=== PATIENT | female | born 1975 | race African-American/Black ===

== ENCOUNTER 2022-04-28 13:24 | Emergency (ER) | payer OTHER ==
[~2022-04-28] VITALS: Ht 154 cm; Wt 68.0 kg
[2022-04-28 13:38] VITALS: BP_SYST 125; BP_SYST 126; BP_SYST 133; BP_DIAS 100; BP_DIAS 77; BP_DIAS 93
--- NOTE | 2022-04-28 13:46 | ED Syncope ---
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 Source of Information: Patient Exam Limitations: No Limitations History of Present Illness Date Seen by Provider: Apr 28, 2022 Time Seen by Provider: 13:34 Initial Comments Patient to the ER by EMS from work where she was working at a football game and states she got very hot feeling she was going to overheat and pass out. She says she was very shaky and nauseated. EMS gave her 4 mg Zofran on route which she says has not helped with her nausea. She has not been working out more than usual. She has not had any alcohol recently. She does not use recreational drugs or smoke cigarettes. She does not have a history of heart disease hypertension or hyperlipidemia. She does have a history of asthma and uses Advair inhalers but is denying any wheezing coughing or shortness of air. No significant history of anxiety or panic attacks. She has a history of tubes tied but no other surgeries. She has a blood sugar of 102 per EMS. No significant family medical history. Allergies and Home Medications Allergies Coded Allergies: No Known Drug Allergies (Unverified , 04/28/22) Patient Home Medication List Home Medication List Reviewed: Yes Review of Systems Constitutional: No chills, No diaphoresis EENTM: No ear discharge, No hearing loss Respiratory: No cough, No short of breath Cardiovascular: see HPI; No chest pain, No edema, No Hx of Intervention, No palpitations, No syncope, No vascular heart diseas Gastrointestinal: No abdominal pain, No constipation, No diarrhea; nausea, vomiting Genitourinary: No decreased output, No discharge Musculoskeletal: No back pain, No joint pain All Other Systems Reviewed Negative Unless Noted: Yes Past Irodgpl-Kreqcj-Wrpybm Hx Patient Social History Tobacco Use?: No Substance use?: No Alcohol Use?: Yes Alcohol type: Beer Alcohol Frequency: Once in a while Immunizations Up To Date Influenza Vaccine Up-to-Date: No; Not Current Physical Exam Vital Signs Vital Signs - First Documented 04/28/22 13:27 Temp 35.8 Pulse 72 Resp 22 B/P (MAP) 162/76 (104) Pulse Ox 100 O2 Delivery Room Air Capillary Refill : Height, Weight, BMI Height: '" Weight: lbs. oz. kg; 28.00 BMI Method: General Appearance: No Apparent Distress, Mild Distress HEENT: PERRL/EOMI, TMs Normal, Normal ENT Inspection; No Pharynx Normal (No erythema or injection), No Moist Mucous Membranes, No Tonsillar Exudate, No Tonsillar Enlargement Neck: Full Range of Motion, Normal Inspection, Non Tender Cardiovascular: Regular Rate, Rhythm, No Edema, No JVD, Normal Peripheral Pulses Respiratory: Lungs Clear, Normal Breath Sounds, No Accessory Muscle Use, No Respiratory Distress Gastrointestinal: Normal Bowel Sounds, No Organomegaly, Non Tender, Soft Neurologic/Psychiatric: Alert, Oriented x3, No Motor/Sensory Deficits, Normal Mood/Affect, advanced analytics associate II-XII Norm as Tested Cranial Nerves: Normal Hearing, Normal Speech, PERRL Motor/Sensory: No Motor Deficit, No Sensory Deficit Skin: Normal Color, Warm/Dry Progress/Results/Core Measures Results/Orders Lab Results Laboratory Tests Test 04/28/22 13:32 04/28/22 14:14 04/28/22 15:27 Range/Units White Blood Count 7.0 4.3-11.0 10^3/uL Red Blood Count 4.38 3.80-5.11 10^6/uL Hemoglobin 13.9 11.5-16.0 g/dL Hematocrit 39 35-52 % Mean Corpuscular Volume 90 80-99 fL Mean Corpuscular Hemoglobin 32 25-34 pg Mean Corpuscular Hemoglobin Concent 35 32-36 g/dL Red Cell Distribution Width 12.2 10.0-14.5 % Platelet Count 304 130-400 10^3/uL Mean Platelet Volume 10.1 9.0-12.2 fL Immature Granulocyte % (Auto) 0 % Neutrophils (%) (Auto) 37 L 42-75 % Lymphocytes (%) (Auto) 53 H 12-44 % Monocytes (%) (Auto) 8 0-12 % Eosinophils (%) (Auto) 1 0-10 % Basophils (%) (Auto) 1 0-10 % Neutrophils # (Auto) 2.6 1.8-7.8 10^3/uL Lymphocytes # (Auto) 3.7 1.0-4.0 10^3/uL Monocytes # (Auto) 0.6 0.0-1.0 10^3/uL Eosinophils # (Auto) 0.1 0.0-0.3 10^3/uL Basophils # (Auto) 0.0 0.0-0.1 10^3/uL Immature Granulocyte # (Auto) 0.0 0.0-0.1 10^3/uL Sodium Level 135 135-145 MMOL/L Potassium Level 4.5 3.6-5.0 MMOL/L Chloride Level 102 98-107 MMOL/L Carbon Dioxide Level 19 L 21-32 MMOL/L Anion Gap 14 5-14 MMOL/L Blood Urea Nitrogen 13 7-18 MG/DL Creatinine 0.94 0.60-1.30 MG/DL Estimat Glomerular Filtration Rate 75 BUN/Creatinine Ratio 14 Glucose Level 98 70-105 MG/DL Calcium Level 9.8 8.5-10.1 MG/DL Corrected Calcium 9.6 8.5-10.1 MG/DL Total Bilirubin 0.8 0.1-1.0 MG/DL Aspartate Amino Transf (AST/SGOT) 30 5-34 U/L Alanine Aminotransferase (ALT/SGPT) 21 0-55 U/L Alkaline Phosphatase 80 40-136 U/L Total Creatine Kinase 99 29-168 U/L Troponin I < 0.028 < 0.028 <0.028 NG/ML C-Reactive Protein High Sensitivity 0.09 0.00-0.50 MG/DL Total Protein 8.3 H 6.4-8.2 GM/DL Albumin 4.2 3.2-4.5 GM/DL Urine Color YELLOW Urine Clarity CLEAR Urine pH 6.5 5-9 Urine Specific [place] 1.020 1.016-1.022 Urine Protein NEGATIVE NEGATIVE Urine Glucose (UA) NEGATIVE NEGATIVE Urine Ketones NEGATIVE NEGATIVE Urine Nitrite NEGATIVE NEGATIVE Urine Bilirubin NEGATIVE NEGATIVE Urine Urobilinogen 0.2 < = 1.0 MG/DL Urine Leukocyte Esterase TRACE H NEGATIVE Urine RBC (Auto) NEGATIVE NEGATIVE Urine RBC NONE /HPF Urine WBC 2-5 /HPF Urine Squamous Epithelial Cells 2-5 /HPF Urine Crystals NONE /LPF Urine Bacteria TRACE /HPF Urine Casts NONE /LPF Urine Mucus NEGATIVE /LPF Urine Culture Indicated NO My Orders Orders - BLANCA,DAISY J Orthostatic Vital Signs (Adult (04/28/22 13:39) Ekg Tracing (04/28/22 13:39) Continuous Ekg Monitoring (04/28/22 13:39) Cbc With Automated Diff (04/28/22 13:39) Comprehensive Metabolic Panel (04/28/22 13:39) Hs C Reactive Protein (04/28/22 13:39) Ua Culture If Indicated (04/28/22 13:39) Urine Bedside (04/28/22 13:39) Chest 1 View, Ap/Pa Only (04/28/22 13:39) Troponin I Rose Marie (04/28/22 13:39) Ekg Tracing (04/28/22 13:43) Creatine Kinase (04/28/22 13:46) Ondansetron Injection (Zofran Injectio (04/28/22 14:00) Promethazine Injection (Phenergan Injec (04/28/22 14:15) Diphenhydramine Injection (Benadryl Inje (04/28/22 14:15) Lactated Ringers (Lr 1000 Ml Iv Solution (04/28/22 14:15) Troponin I Dewey (04/28/22 15:30) Medications Given in ED Current Medications Medications Dose Ordered Sig/Antonette Route Start Time Stop Time Status Last Admin Dose Admin Diphenhydramine HCl 25 mg ONCE ONCE IVP 04/28/22 14:15 04/28/22 14:16 DC 04/28/22 14:24 25 MG Lactated Ringer's 1,000 ml @ 0 mls/hr Q0M ONCE IV 04/28/22 14:15 04/28/22 14:16 DC 04/28/22 14:25 1,000 MLS/HR Ondansetron HCl 4 mg ONCE ONCE IVP 04/28/22 14:00 04/28/22 14:01 DC 04/28/22 13:52 4 MG Promethazine HCl 25 mg ONCE ONCE IVP 04/28/22 14:15 04/28/22 14:16 DC 04/28/22 14:24 25 MG Vital Signs/I&O 04/28/22 04/28/22 13:27 13:38 Temp 35.8 Pulse 72 72 85 90 Resp 22 B/P (MAP) 162/76 (104) 133/77 (95) 126/93 (104) 125/100 (108) Pulse Ox 100 O2 Delivery Room Air Blood Pressure Mean: 108 Progress Progress Note #1: Time: 13:49 Progress Note Orthostatic vital signs, we will let her finish the liter of fluids started by EMS. Will check urine, labs, bedside . She has had her tubes tied. Will get an x-ray, EKG and troponin for syncope work-up. CPK. Another 4 of Zofran. Progress Note #2: Time: 14:15 Progress Note Patient's nausea has improved but is not gone. We will give her Phenergan, Benadryl and another liter of fluids. Blood pressure on orthostatic vital signs is okay. Heart rate jumped up to 18 bpm on standing. Progress Note #3: Time: 14:38 Progress Note The patient is feeling better. Her second liter of fluids are infusing. Were going to get a repeat troponin at 1430. Her orthostatics were borderline positive but not positive. If she is feeling well then we will let her go home take the day off and follow-up with cardiology on outpatient basis. We have not seen any dysrhythmias on the monitor since she has been here so far. Initial ECG Impression Date: Apr 28, 2022 Initial ECG Impression Time: 13:40 Initial ECG Rate: 65 Initial ECG Rhythm: Normal Sinus Initial ECG Intervals: [place] (221) Initial ECG Impression: Normal Initial ECG Comparisson: No Previous ECG Available Comment Sinus rhythm, prolonged [place] interval. No clinically relevant ST elevation or depression. Diagnostic Imaging Diagonstic Imaging: Xray Plain Films/CT/US/NM/MRI: chest Comments [facility]. [place], [place] NAME: NICOLE DELGADILLO [facility] REC#: [id number] PT STATUS: REG ER : 1975 PHYSICIAN: DAISY RIOS MD ADMIT DATE: 04/28/22/ER Draft Date of Exam:04/28/22 CHEST 1 VIEW, AP/PA ONLY Indication: Follow-up near syncopal episode. Comparison: None. Discussion: Single portable upright view of the chest was obtained. Normal heart size. No consolidation, pleural fluid, or pneumothorax. No osseous abnormality. Antecedent granulomatous disease is noted, benign. Impression: 1. Negative chest. Dictated on workstation # [id number] Dict: 04/28/22 1423 Trans: 04/28/22 1425 ACB [id number] Interpreted by: WESLEY MAGDALENO MD Electronically signed by: Reviewed: Reviewed by Me Departure Impression Primary Impression: Near syncope Disposition: 01 HOME, SELF-CARE Condition: Stable Departure-Patient Inst. Decision time for Depature: 16:25 Referrals: MANUEL SOLIS MD Patient Instructions: Syncope (Fainting) (DC) Add. Discharge Instructions: Drink plenty of fluids. Call Dr. Solis, cardiology and make a follow-up appointment in the next 2 to 4 weeks to evaluate your episode. If you have continued repeat episodes of nearly passing out, chest pain, shortness of air or other worrisome symptoms then please return to the nearest ER for further evaluation. Ondansetron 1 tablet every 6 hours as needed for nausea and/or vomiting. All discharge instructions reviewed with patient and/or family. Voiced understanding. Scripts Ondansetron (Ondansetron Odt) 4 Mg Tab.rapdis 4 MG PO Q6H PRN for NAUSEA/VOMITING, #8 TAB 0 Refills Prov: DAISY RIOS 04/28/22 Work/School Note: Work Release Form Date Seen in the Emergency Department: Apr 28, 2022 Return to Work: Apr 29, 2022 Restrictions: No Restrictions Copy Copies To 1: MANUEL SOLIS MD, TITUS J Apr 28, 2022 13:46
[2022-04-28 13:49] LABS: BASOPHILS % (AUTO) 1 % (0-10); EOSINOPHILS # (AUTO) 0.1 10^3/uL (0.0-0.3); EOSINOPHILS % (AUTO) 1 % (0-10); HEMATOCRIT 39 % (35-52); HEMOGLOBIN 13.9 g/dL (11.5-16.0); LYMPHOCYTES # (AUTO) 3.7 10^3/uL (1.0-4.0); LYMPHOCYTES % (AUTO) 53 % (12-44); MEAN CORPUSCULAR HEMOGLOBIN 32 pg (25-34); MEAN CORPUSCULAR HGB CONC 35 g/dL (32-36); MEAN CORPUSCULAR VOLUME 90 fL (80-99); MEAN PLATELET VOLUME 10.1 fL (9.0-12.2); MONOCYTES # (AUTO) 0.6 10^3/uL (0.0-1.0); MONOCYTES % (AUTO) 8 % (0-12); NEUTROPHILS # (AUTO) 2.6 10^3/uL (1.8-7.8); NEUTROPHILS % (AUTO) 37 % (42-75); PLATELET COUNT 304 10^3/uL (130-400)
[2022-04-28 13:58] LABS: ALBUMIN 4.2 GM/DL (3.2-4.5); CHLORIDE 102 MMOL/L (98-107); POTASSIUM 4.5 MMOL/L (3.6-5.0); SODIUM 135 MMOL/L (135-145)
[2022-04-28 13:59] LABS: CALCIUM 9.8 MG/DL (8.5-10.1)
[2022-04-28 14:00] LABS: GLUCOSE 98 MG/DL (70-105); TOTAL PROTEIN 8.3 GM/DL (6.4-8.2)
[2022-04-28] MEDS ORDERED: ONDANSETRON 4 MG/2 ML (SDV) Z0FRAN IVP ONE (14:00)
[2022-04-28 14:01] LABS: CARBON DIOXIDE 19 MMOL/L (21-32)
[2022-04-28 14:02] LABS: BILIRUBIN,TOTAL 0.8 MG/DL (0.1-1.0)
[2022-04-28 14:04] LABS: ALKALINE PHOSPHATASE 80 U/L (40-136); CREATININE SERUM 0.94 MG/DL (0.60-1.30); GFR ESTIMATED 75
[2022-04-28 14:05] LABS: BUN/CREATININE RATIO 14
[2022-04-28 14:07] LABS: ALANINE AMINOTRANSFERASE 21 U/L (0-55)
[2022-04-28] MEDS ORDERED: diphenhydrAMINE 50 MG/ML INJ (BENADRYL) IVP ONE (14:15)
[2022-04-28] MEDS ORDERED: LACTATED RINGERS 1,000 ML IV ONE (14:15)
[2022-04-28] MEDS ORDERED: PROMETHAZINE INJ 25 MG/ML (PHENERGAN) AMP IVP ONE (14:15)
[2022-04-28 14:23] LABS: BILIRUBIN,URINE NEGATIVE (NEGATIVE); CLARITY,URINE CLEAR; COLOR,URINE YELLOW; GLUCOSE, URINE (UA) NEGATIVE (NEGATIVE); KETONES,URINE NEGATIVE (NEGATIVE); LEUKOCYTE ESTERASE ,URINE TRACE (NEGATIVE); NITRITE,URINE NEGATIVE (NEGATIVE); PH,URINE 6.5 (5-9); PROTEIN,URINE NEGATIVE (NEGATIVE)
--- NOTE | 2022-04-28 14:26 | Diagnostic Imaging Report ---
Indication: Follow-up near syncopal episode. Comparison: None. Discussion: Single portable upright view of the chest was obtained. Normal heart size. No consolidation, pleural fluid, or pneumothorax. No osseous abnormality. Antecedent granulomatous disease is noted, benign. Impression: 1. Negative chest. Dictated by: Dictated on workstation # [id number]
[2022-04-28 14:31] LABS: BACTERIA,URINE TRACE /HPF
[2022-04-28] MEDS ORDERED: ONDA4TAB11 PO (16:32)
[2022-04-28 16:37] VITALS: BP 135/71
== END 2022-04-28 16:37 | disposition home or self-care (01) ==
LOC: ER 13:26
DX: R55 Syncope and collapse (principal); R11.0 Nausea; J45.909 Unspecified asthma, uncomplicated; Z79.51 Long term (current) use of inhaled steroids
CPT/HCPCS: 36415; 71045; 80053; 81000; 82550; 84484; 84703; 85025; 86141; 93005